=== PATIENT | male | born 1955 | race Caucasian/White ===

== ENCOUNTER 2023-12-28 08:07 | Inpatient (IN) | payer MEDICARE, SELFPAY ==
[2023-12-28] VITALS (31 sets, daily range): BP systolic 126–201; BP diastolic 73–139; PULSE 62–134; RESP 13–30; TEMP 36.4–36.8; O2SAT 95–100; BMI 20.3
--- NOTE | ~2023-12-28 | CT_ITS ---
EXAMINATION: CT brain wo con DATE: 12/28/2023 09:01 INDICATION: Altered mental status. TECHNIQUE: Computed tomography (CT) of the head was performed without intravenous contrast. The mA wa s adjusted according to patient size. Iterative reconstruction technique was employed. The dose-lengt h product was 605.33 mGy-cm. COMPARISON: None FINDINGS: There are old infarcts involving the bilateral basal ganglia and anterior limb right internet programmer al capsule. There are scattered areas of low attenuation in the cerebral white matter. There is no in tracranial hemorrhage, acute infarction, or abnormal intracranial mass lesion. The ventricles are nor mal in size. The paranasal sinuses are clear. The orbits are normal. The mastoid air cells are normal . IMPRESSION: 1. Old infarcts involving the bilateral basal ganglia and anterior limb right internal capsule. 2. Mild nonspecific cerebral white matter disease, which likely represents chronic small vessel ische juan disease. Reviewed, dictated and finalized at location A. IMPRESSION: 1. Old infarcts involving the bilateral basal ganglia and anterior limb right i nternal capsule. 2. Mild nonspecific cerebral white matter disease, which likely represents lap runner justin small vessel ischemic disease.
[2023-12-28] MEDS: HALOPERIDOL LACTATE 5 MG/ML VIAL (08:20)
[2023-12-28] MEDS: LORazepam INJ (*CRX) 2 MG/ML VIAL (08:21)
--- NOTE | 2023-12-28 08:51 | PC.NURSE ---
Cooperative with staff. No further yelling.
--- NOTE | 2023-12-28 08:54 | ED.GENADULT ---
HPI - General Adult General Chief complaint: Altered Mental Status Stated complaint: behavioral issue Time Seen by Provider: 12/28/23 08:36 History of Present Illness HPI narrative: 68-year-old male presenting to the emergency department for evaluation for altered mental status. Patient was found running in and out of traffic and screaming. Patient arrived to the emergency department and police custody and was screaming C systole at the staff. Patient appeared to be in no distress but was very agitated and very angry. In order to facilitate any exam patient needed to have some chemical restraint. Patient was treated with 5 mg of IM Haldol and 2 mg of IM Ativan. This did have the affect of decreasing the patient's agitation and we were able to have some interaction with him. Patient denies any pain or complaint. Related Data Home Medications Medication Instructions Recorded Confirmed No Home Medications 12/28/23 12/28/23 Allergies Allergy/AdvReac Type Severity Reaction Status Date / Time Penicillins Allergy Unknown Verified 11/23/09 15:03 Review of Systems Review of Systems: All systems reviewed & are unremarkable except as noted in HPI and below [facility] Family History Family History Father Family history of coronary artery disease Social History Social History Smoking status: Smoker, status unknown Tobacco type: pipe Alcohol intake: never Spiritual care concerns: No Exam Narrative: APPEARANCE: Distress HEAD: normocephalic, atraumatic. EYES: PERRLA/EOMI, conjunctivae clear. NOSE: Normal no drainage EARS:TMS clear with good light reflex. THROAT: Pharynx clear, no exudate. NECK: Supple. No adenopathy, no masses. RESPIRATORY: Airway patent, respirations nonlabored. Clear to auscultation bilaterally, no rales, rhonchi, wheezing. CARDIOVASCULAR: Regular rate and rhythm without murmurs rubs or gallops. ABDOMINAL: Soft, nontender, nondistended, normal bowel sounds MUSCULOSKELETAL: Moves all extremities. Strength/ROM intact, No edema, No calf tenderness. NEURO: Alert. Cranial nerves II through XII intact. Good gait. Good coordination SKIN: Warm, dry. Normal Color PSYCHIATRIC: Agitated Course Course Emergency Course: The patient was admitted for altered mental status and UTI Vital Signs Vital signs: Vital Signs Temperature 98.1 F 12/28/23 08:09 Pulse Rate 134 H 12/28/23 08:09 Respiratory Rate 30 H 12/28/23 08:09 Pulse Oximetry 100 12/28/23 08:09 Oxygen Delivery Room Air 12/28/23 08:09 Temperature 97.7 F 12/28/23 16:00 Pulse Rate 66 12/28/23 18:00 Respiratory Rate 16 12/28/23 16:00 Blood Pressure 137/73 12/28/23 16:00 Pulse Oximetry 100 12/28/23 16:00 Oxygen Delivery Nasal Cannula 12/28/23 16:00 Oxygen Flow Rate 2 12/28/23 16:00 Medical Decision Making MDM Narrative Medical decision making narrative: 68-year-old male presents emergency department for evaluation for increased agitation altered mental status. Patient was afebrile with no leukocytosis and a hemoglobin of 13.3. No significant abnormalities on the patient's CMP UA was significant for urinary tract infection. Patient's drug screen was negative and patient was negative for influenza RSV and for COVID. Head CT showed no acute intracranial abnormality. Patient's altered mental status may be secondary to a urinary tract infection. Patient was started on antibiotics and admitted to the hospitalist for further evaluation. After patient initially was agitated and treated with Haldol and Ativan he was resting comfortably for the majority of his time in the emergency department. Patient had no further outbursts but did interact communication. Differential Diagnosis Differential Diagnosis: Subarachnoid hemorrhage, subdural hematoma, meningitis, influenza, RSV, COVID, UTI, intoxi
--- NOTE | 2023-12-28 08:55 | ECG_ITS ---
Test Date: 2023-12-28 09:03:55 Measurements Intervals [place] Rate: 84 P: 70 MD: 147 QRS: 67 QRSD: 102 T: 46 QT: 410 QTc: 485 Interpretive Statements SINUS RHYTHM POSSIBLE RIGHT ATRIAL ENLARGEMENT [0.25mV P WAVE] LEFT ATRIAL ENLARGEMENT [-0.15mV P WAVE IN V1/V2] POSSIBLE LEFT VENTRICULAR HYPERTROPHY [VOLTAGE CRITERIA PLUS LAE OR QRS WIDENING] No previous ECG available for comparison Electronically Signed On 12-28-2023 11:00:52 CDT by Scar Young M.D.
[2023-12-28 09:19] LABS: Basophils Percent Auto 0.3 % (0.2-1.2); Eosinophils Absolute Auto 0.1 K/mm3 (0-0.3); Hematocrit 40.3 % (42.0-52.0); Hemoglobin 13.3 g/dL (14.0-18.0); Immature Granulocyte Absolute 0.02 K/mm3 (0.00-0.031); Immature Granulocyte Percent A 0.3 % (0-0.5); Lymphocytes Absolute Auto 0.73 K/mm3 (0.9-3.2); Lymphocytes Percent Auto 10.4 % (18.3-44.2); Mean Corpuscular Hemoglobin 30.6 pg (26-34); Mean Corpuscular Volume 92.9 fl (80-100); Mean Platelet Volume 10.1 fl (7.4-10.4); Monocytes Absolute Auto 0.4 K/mm3 (0.1-0.6); Monocytes Percent Auto 6.2 % (2.6-8.5); Neutrophils Absolute Auto 5.7 K/mm3 (1.3-6.7); Neutrophils Percent Auto 81.8 % (45.5-73.1); Platelet Count Result 236 k/mm3 (150-375); Red Blood Count 4.34 M/mm3 (4.6-6.20); Red Cell Distribution Width 14.4 % (11.5-14.5)
[2023-12-28 09:30] LABS: Partial Thromboplastin Time 22.1 Seconds (22.3-36.8); Prothrombin Time 13.9 Seconds (11.1-14.7)
[2023-12-28 09:44] LABS: Acetaminophen < 10 ug/mL (10-30); Alanine Aminotransferase 37 U/L (6-50); Albumin Level 3.9 g/dL (3.5-5.1); Alkaline Phosphatase 62 U/L (38-126); Anion Gap 8 mmol/L (4-12); Aspartate Amino Transferase 66 U/L (17-59); Bilirubin,Total 0.6 mg/dL (0.2-1.3); Blood Urea Nitrogen 21 mg/dL (9-20); Carbon Dioxide 28 mmol/L (22-30); Chloride 100 mmol/L (98-107); Estimated CRCL calculation 49 ml/min; Estimated Glomerular Filt Rate 55; Ethanol < 10 mg/dL (<10); Glucose 123 mg/dL (65-110); Potassium 3.4 mmol/L (3.4-5.0); Salicylate < 1.0 mg/dL (2-20); Sodium 136 mmol/L (137-145)
[2023-12-28 09:55] LABS: Influenza A QL RT-PCR Negative (Negative); Influenza B QL RT-PCR Negative (Negative); RSV RNA, RT-PCR Negative (Negative); SARS-CoV-2 RNA PCR Negative (Negative)
[2023-12-28 11:23] LABS: Add Urine Microscopic? YES; Appearance Urine Cloudy (Clear); Bacteria Urine 1+ /hpf; Bilirubin Urine Negative (Negative); Blood Urine 1+ (Negative); Color Urine Yellow (Yellow); Glucose Urine UA Negative (Negative); Ketones Urine Trace mg/dL (Negative); Leukocyte Esterase Ur 3+ LEU/UL (Negative); Need Manual Microscopic Reviewed; Nitrate Urine Positive (Negative); Non Pathogenic Casts 0-2; Protein Urine 1+ mg/dL (Negative); RBC Urine 0-2 /hpf (0-2); Specific Grav Ur 1.017 (1.001-1.035); Squamous Epithelial Cell Urine None Seen /hpf (Few); Urobilinogen Urine 0.2 mg/dL (<2.0); WBC Urine >100 /hpf (0-3)
[2023-12-28 11:25] LABS: Amphetamine Screen Urine Negative (Negative); Barbiturate Screen Urine Negative (Negative); Benzodiazepines Screen Urine Negative (Negative); Cannabinoid Screen Urine Negative (Negative); Cocaine Screen Urine Negative (Negative); Methadone Screen Urine Negative (Negative); Opiate Screen Urine Negative (Negative); Phencyclidine Screen Urine Negative (Negative)
[2023-12-28] MEDS: levoFLOXacin 750 MG/D5W 150 ML 750 MG/150 ML BAG 100 MG IVPB (11:53)
--- NOTE | 2023-12-28 11:58 | PC.NURSE ---
Remains cooperative with staff.
--- NOTE | 2023-12-28 12:39 | PC.NURSE ---
This RN spoke with CANARY RAISER regarding the patient's transfer to IMU room 205-02
--- NOTE | 2023-12-28 12:57 | ADMGEN ---
This patient, Isreal Garcia, was admitted to IMU Room 205-02 @ 1257. Patient/family oriented to hospital policies and general routines including ID bracelet, bed and alarms, visiting hours, pain management, procedures, bathroom and other care routines, personal items, smoking policy, room service/diet, and visiting hours. Information on how to activate the Rapid Response Team has been discussed. Patient/Family are encouraged to report perceived risks to care and to ask questions if they do not understand what they are told or what they should do.
--- NOTE | 2023-12-28 13:02 | PM.IMHP ---
H&P: HPI History of Present Illness Date/Time: 12/28/23 13:02 Chief Complaint: altered mental status Narrative: This is a 68 year old male with who presented to the hospital for evaluation of altered mental status. History of presenting illness was obtained from the chart as patient has been noncontributory due to his AMS. Past medical and surgical history is unknown at this time. According to the EMR and ER report, patient was found by police to be roaming in the middle of the road with altered mental status. Police picked him up and brought him to the hospital. Upon arrival to the ED patient was screaming at staff and required chemical restraint with Haldol and Ativan to calm him down. After dose of Haldol and Ativan, patient was able to calm down and has been resting. Work up in the ER included a head CT which shown old infarcts involving the bilateral basal ganglia and anterior limb right internal capsule, mild nonspecific cerebral white matter disease, which likely represents chronic small vessel ischemic disease. Initial labs include WBC 7.0, Hgb 13.3, Na+ 136, eGFR 55, AST 66. UA was obtained and shown a cloudy appearance, 1+ urine protein, trace urine ketone, 1+ urine blood, positive nitrate, 3+ leukocyte, greater than 100 urine WBC, 1+ urine bacteria. Urine drug screen and alcohol screen was negative. Respiratory panel was negative for influenza A and B, RSV, COVID. Patient was given a dose of Levaquin in the ED. Review of Systems Review of Systems: ROS unobtainable: Yes unobtainable due to mental status PMFSH Family History Family History Father Family history of coronary artery disease Social History Social History Smoking status: Smoker, status unknown Tobacco type: pipe Alcohol intake: never Spiritual care concerns: No Meds Home Medications and Allergies Home Medications Medication Instructions Recorded Confirmed Type No Home Medications 12/28/23 12/28/23 History Allergies Allergy/AdvReac Type Severity Reaction Status Date / Time Penicillins Allergy Unknown Verified 11/23/09 15:03 Vital Signs Vital Signs - 24 hr 12/28/23 08:09 12/28/23 08:25 12/28/23 08:31 Temperature 98.1 F Pulse Rate 134 H 102 H Respiratory Rate 30 H 20 Blood Pressure 201/139 H 170/104 H Pulse Oximetry 100 95 Oxygen Delivery Room Air Oxygen Flow Rate 12/28/23 08:31 12/28/23 08:33 12/28/23 08:31 Temperature 98.2 F Pulse Rate 103 H 101 H 90 Respiratory Rate 18 16 Blood Pressure 170/104 H 153/92 H Pulse Oximetry 96 98 Oxygen Delivery Oxygen Flow Rate 12/28/23 08:46 12/28/23 09:03 12/28/23 09:07 Temperature 98.3 F Pulse Rate 89 87 85 Respiratory Rate 20 16 15 Blood Pressure 148/90 H 157/104 H Pulse Oximetry 98 98 98 Oxygen Delivery Oxygen Flow Rate 12/28/23 09:09 12/28/23 09:15 12/28/23 09:20 Temperature Pulse Rate 86 81 81 Respiratory Rate 14 15 14 Blood Pressure 157/104 H 142/86 H Pulse Oximetry 99 98 98 Oxygen Delivery Oxygen Flow Rate 12/28/23 09:30 12/28/23 09:31 12/28/23 10:02 Temperature Pulse Rate 78 78 74 Respiratory Rate 15 15 13 Blood Pressure 126/85 Pulse Oximetry 97 98 98 Oxygen Delivery Oxygen Flow Rate 12/28/23 10:15 12/28/23 10:20 12/28/23 10:49 Temperature Pulse Rate 75 73 71 Respiratory Rate 15 14 13 Blood Pressure 135/83 Pulse Oximetry 97 99 100 Oxygen Delivery Oxygen Flow Rate 12/28/23 08:20 12/28/23 11:14 12/28/23 11:15 Temperature Pulse Rate 73 73 Respiratory Rate 14 13 Blood Pressure Pulse Oximetry 98 99 100 Oxygen Delivery Nasal Cannula Oxygen Flow Rate 2 12/28/23 11:16 12/28/23 12:40 Temperature Pulse Rate 73 70 Respiratory Rate 13 18 Blood Pressure 134/88 Pulse Oximetry 99 99 Oxygen Delivery Oxygen Flow Rate Exam Narrative:
[2023-12-28 14:11] LABS: Hemoglobin A1C 5.7 % (<5.7)
[2023-12-28] MEDS: ENOXAPARIN 40 MG/0.4 ML SYRINGE SUB-Q (14:17)
[2023-12-28] MEDS: DEXTROSE 5%/0.9% SOD CHL 1,000 ML 75 ML IV CONT (14:17)
[2023-12-28 14:37] LABS: Thyroid Stimulating Hormone 0.886 uIU/mL (0.465-4.680)
[2023-12-28 18:17] LABS: Glucose Point of Care 95 mg/dl (65-105)
[2023-12-28 23:47] LABS: Glucose Point of Care 95 mg/dl (65-105)
[2023-12-29] VITALS (19 sets, daily range): BP systolic 152–200; BP diastolic 92–127; PULSE 76–119; RESP 16–20; TEMP 36.6–37.1; O2SAT 93–100
[2023-12-29] MEDS: DEXTROSE 5%/0.9% SOD CHL 1,000 ML 75 ML IV CONT (02:43)
[2023-12-29 05:02] LABS: Basophils Percent Auto 0.6 % (0.2-1.2); Eosinophils Absolute Auto 0.2 K/mm3 (0-0.3); Eosinophils Percent Auto 3.5 % (0-4.4); Hematocrit 40.6 % (42.0-52.0); Hemoglobin 13.4 g/dL (14.0-18.0); Immature Granulocyte Absolute 0.01 K/mm3 (0.00-0.031); Immature Granulocyte Percent A 0.2 % (0-0.5); Lymphocytes Absolute Auto 1.49 K/mm3 (0.9-3.2); Lymphocytes Percent Auto 27.6 % (18.3-44.2); Mean Corpuscular Hemoglobin 30.9 pg (26-34); Mean Corpuscular Volume 93.8 fl (80-100); Mean Platelet Volume 10.2 fl (7.4-10.4); Monocytes Absolute Auto 0.5 K/mm3 (0.1-0.6); Monocytes Percent Auto 8.3 % (2.6-8.5); Neutrophils Absolute Auto 3.2 K/mm3 (1.3-6.7); Neutrophils Percent Auto 59.8 % (45.5-73.1); Platelet Count Result 235 k/mm3 (150-375); Red Blood Count 4.33 M/mm3 (4.6-6.20); Red Cell Distribution Width 14.2 % (11.5-14.5); White Blood Count 5.4 K/mm3 (4.5-10.0)
[2023-12-29 05:11] LABS: Alanine Aminotransferase 31 U/L (6-50); Albumin Level 3.4 g/dL (3.5-5.1); Alkaline Phosphatase 68 U/L (38-126); Anion Gap 3 mmol/L (4-12); Aspartate Amino Transferase 54 U/L (17-59); Bilirubin,Total 0.4 mg/dL (0.2-1.3); Blood Urea Nitrogen 17 mg/dL (9-20); Calcium 8.9 mg/dL (8.4-10.2); Carbon Dioxide 29 mmol/L (22-30); Chloride 104 mmol/L (98-107); Estimated CRCL calculation 52 ml/min; Estimated Glomerular Filt Rate > 60; Glucose 106 mg/dL (65-110); Potassium 4.2 mmol/L (3.4-5.0); Sodium 136 mmol/L (137-145)
[2023-12-29] MEDS: ENOXAPARIN 40 MG/0.4 ML SYRINGE SUB-Q (08:46)
--- NOTE | 2023-12-29 09:49 | PM.IMPN ---
Progress Note: A&P Assessment and Plan (1) Altered mental status: Code(s): R41.82 - Altered mental status, unspecified Status: Acute Assessment and Plan: 12/28/23: likely secondary to UTI patient initially requiring chemical restraint of Haldol and Ativan while in the ED head CT revealed old infarcts involving the bilateral basal ganglia and anterior limb right internal capsule, mild nonspecific cerebral white matter disease representing chronic small-vessel ischemic disease. UA positive urine culture and blood culture obtained and pending urine drug screen and alcohol screen negative respiratory panel negative for influenza a and B, RSV, COVID Will provide IVF D5NS at 75ml/hr for hydration 12/28- ok to stop fluids for now as eating and drinking well. (2) Acute UTI: Code(s): N39.0 - Urinary tract infection, site not specified Status: Acute Assessment and Plan: 12/28/23: UA showing cloudy appearance, 1+ urine protein, trace ketones, 1+ urine blood, positive nitrate, 3+ leukocyte, greater than 100 urine WBC, 1+ urine bacteria blood and urine cultures were obtained and are pending patient was given a dose of Levaquin in the ED will switch to Rocephin 1 g daily Time Spent With Patient Time with patient: Greater than 35 minutes Subjective Date/time seen: 12/29/23 09:49 Interval history: altered mental status Narrative retrieved from H/P: This is a 68 year old male with who presented to the hospital for evaluation of altered mental status. History of presenting illness was obtained from the chart as patient has been noncontributory due to his AMS. Past medical and surgical history is unknown at this time. According to the EMR and ER report, patient was found by police to be roaming in the middle of the road with altered mental status. Police picked him up and brought him to the hospital. Upon arrival to the ED patient was screaming at staff and required chemical restraint with Haldol and Ativan to calm him down. After dose of Haldol and Ativan, patient was able to calm down and has been resting. Work up in the ER included a head CT which shown old infarcts involving the bilateral basal ganglia and anterior limb right internal capsule, mild nonspecific cerebral white matter disease, which likely represents chronic small vessel ischemic disease. Initial labs include WBC 7.0, Hgb 13.3, Na+ 136, eGFR 55, AST 66. UA was obtained and shown a cloudy appearance, 1+ urine protein, trace urine ketone, 1+ urine blood, positive nitrate, 3+ leukocyte, greater than 100 urine WBC, 1+ urine bacteria. Urine drug screen and alcohol screen was negative. Respiratory panel was negative for influenza A and B, RSV, COVID. Patient was given a dose of Levaquin in the ED. 12/28 pt is seen and examined. He is jittery and somewhat anxious but seems alert. Denies pain, eating and drinking fine. Exam Narrative: General: alert, somewhat anxious but cooperative. Head: atraumatic, no encephalopathy Eyes: EOMI, PERRLA, sclera clear ENT: moist mucous membranes, nasal passages clear Neck: supple, no JVD, no adenopathy, trachea midline Cardiac: Normal S1 and S2. RRR, No murmur, gallops or friction rubs, peripheral pulses intact. Respiratory: Lungs clear to auscultation, no adventitious lung sounds, currently on 1L NC Gastrointestinal: soft, non-distended, non-tender, normoactive bowel sounds. : voiding without difficulty comfort colored urine Extremities: moves all extremities well, no edema Skin: clean, dry, intact. No wounds or lesions. Neuro: Obtunded,will awake to painful stimuli and then drifts back off to sleep, cranial nerves intact, no neuro deficits. Psych: normal mood, normal affect, interactive Objective Data Vital Signs Vital Signs: Vital Signs - 24 hr 12/28/23 10:02 12/28/23 10:15 12/28/23 10:20 Temperature Pulse Rate 74 75 73 Respiratory Rate 13 15 14 Blood Pressure 135/83 Pulse Ox
[2023-12-29 11:58] LABS: Glucose Point of Care 126 mg/dl (65-105)
--- NOTE | 2023-12-29 13:46 | PC.NURSE ---
Notified Jennie Ibarra that of high blood pressure. Current BP 175/116. SATELLITE TECHNICIAN to place orders
--- NOTE | 2023-12-29 14:33 | PC.NURSE ---
PT refusing medication, this RN is unable to convince the patient to take the medication. This RN tried educating the patient but patient continues to refuse, and is becoming agitated as evidenced by increased restlessness while sitting in the chair. Notified Jennie Ibarra who states she will order something IV to see if the patient is more agreeable to administration.
[2023-12-29] MEDS: hydrALAZINE HCL 20 MG/ML VIAL 10 MG IV PUSH (15:10)
--- NOTE | 2023-12-29 22:24 | PC.NURSE ---
Spoke with Ramona Ramos regarding patient refusing hydralazine. NNO.
--- NOTE | 2023-12-29 23:16 | PC.NURSE ---
Ramona Ramos saw patient regarding refusing hydralazine. Orders received to document refusal and obtain medical records from [facility].
--- NOTE | 2023-12-29 23:31 | PM.EVENT ---
Event Note Event Note Event Note: Was called by bedside nurse who states that patient's blood pressure remains elevated and patient refusing medications at this time. I went and assessed the patient and he is alert and oriented x3. he knows that he is at [facility], he knows that it is December and that it is 2023. He also stated that Rajiv Edwards was the student life vice president when asked. I discussed the importance of taking his medications while inpatient as we are treating him for urinary tract infection and that his blood pressure is elevated. His blood pressure is ranging 179/106 to 200/113. He states that he does not believe that he needs any medication and continues to refuse. he also mentions that he sees a psych DrLeón and has been a patient at [facility] in the past. He denies taking any medications at home as he was told that he does not need any medications. He thinks that the blood pressure cuff is wrong and it that we are illegally prescribing medications. He denies any use of alcohol or illicit drugs However admitted to marijuana use in the past. Spoke with nursing to obtain medical records from [facility] as well as [facility] as he has sought care there as well. He states he does not see a primary care physician and could not recall the name of his psychiatrist. We will continue to monitor at this time and will get case management involved getting medical records from other facilities.
[2023-12-30] VITALS (13 sets, daily range): BP systolic 150–192; BP diastolic 93–110; PULSE 76–117; RESP 16–20; TEMP 36.6–37.2; O2SAT 96–100
[2023-12-30 05:35] LABS: Basophils Percent Auto 0.5 % (0.2-1.2); Eosinophils Absolute Auto 0.2 K/mm3 (0-0.3); Eosinophils Percent Auto 3.1 % (0-4.4); Hemoglobin 14.3 g/dL (14.0-18.0); Immature Granulocyte Absolute 0.02 K/mm3 (0.00-0.031); Immature Granulocyte Percent A 0.3 % (0-0.5); Lymphocytes Absolute Auto 2.08 K/mm3 (0.9-3.2); Lymphocytes Percent Auto 32.7 % (18.3-44.2); Mean Corpuscular HGB Conc 33.3 g/dl (32-36); Mean Corpuscular Hemoglobin 30.8 pg (26-34); Mean Corpuscular Volume 92.5 fl (80-100); Mean Platelet Volume 10.5 fl (7.4-10.4); Monocytes Absolute Auto 0.5 K/mm3 (0.1-0.6); Monocytes Percent Auto 8.2 % (2.6-8.5); Neutrophils Absolute Auto 3.5 K/mm3 (1.3-6.7); Neutrophils Percent Auto 55.2 % (45.5-73.1); Platelet Count Result 246 k/mm3 (150-375); Red Blood Count 4.65 M/mm3 (4.6-6.20); Red Cell Distribution Width 14.4 % (11.5-14.5); White Blood Count 6.4 K/mm3 (4.5-10.0)
[2023-12-30 05:53] LABS: Alanine Aminotransferase 29 U/L (6-50); Albumin Level 3.8 g/dL (3.5-5.1); Alkaline Phosphatase 76 U/L (38-126); Anion Gap 6 mmol/L (4-12); Aspartate Amino Transferase 44 U/L (17-59); Bilirubin,Total 0.6 mg/dL (0.2-1.3); Blood Urea Nitrogen 11 mg/dL (9-20); Carbon Dioxide 28 mmol/L (22-30); Chloride 101 mmol/L (98-107); Estimated CRCL calculation 62 ml/min; Estimated Glomerular Filt Rate > 60; Glucose 88 mg/dL (65-110); Potassium 3.6 mmol/L (3.4-5.0); Sodium 135 mmol/L (137-145)
[2023-12-30] MEDS: ENOXAPARIN 40 MG/0.4 ML SYRINGE SUB-Q (08:43)
[2023-12-30] MEDS: hydrALAZINE HCL 20 MG/ML VIAL 10 MG IV PUSH (09:16)
--- NOTE | 2023-12-30 10:20 | PC.NURSE ---
PT alert and oriented. Knows location, month and year, and the presidents name. PT does not want to give name and remains suspicious this morning. Concerned staff are giving him anthrax through his IV. Order to obtain medical records but the patient refuses to sign consent. States it may come back on me . Notifed Dr Nunez of refusal and refusal of morning Norvasc.
[2023-12-30 11:47] LABS: Glucose Point of Care 131 mg/dl (65-105)
--- NOTE | 2023-12-30 15:57 | PM.IMPN ---
Progress Note: A&P Assessment and Plan (1) Altered mental status: Code(s): R41.82 - Altered mental status, unspecified Status: Acute Assessment and Plan: Patient was brought in by police after being found running in and out of traffic and screaming. He was treated with 5 mg of IM Haldol and 2 mg of IM Ativan in the ED. Labs were unrevealing. TSH normal. CT brain showing old infarcts involving the bilateral basal ganglia and anterior limb right internal capsule and mild nonspecific cerebral white matter disease but no acute changes. UDS was negative. COVID, RSV and influenza PCR were negative. Salicylates, acetaminophen and alcohol levels negative. UA consistent with UTI. Possibly AMS related to UTI. Symptoms better today. Consider also withdrawal vs psychiatric. Check B12, folate. Monitor (2) Acute UTI: Code(s): N39.0 - Urinary tract infection, site not specified Status: Acute Assessment and Plan: UA is consistent with UTI. UCx collected. Levaquin started. BCx NGTD UCx pending. Follow up on UCx results. (3) CVA (cerebral vascular accident): Code(s): I63.9 - Cerebral infarction, unspecified Status: Acute Assessment and Plan: CT brain as mentioned above. A1c 5.7. He refuses aspirin and statin therapy here. He does take 'B and C' which might be a powder form of aspirin. Encouraged patient to take ASA daily (4) Elevated blood pressure reading: Code(s): R03.0 - Elevated blood-pressure reading, without diagnosis of hypertension Status: Acute Assessment and Plan: Patient's blood pressure was reviewed on 12/29 Blood pressure remains elevated at times He is refusing medications. He is oriented. 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 He refuses to sign for relase of information from [employer]. DVT prophylaxis - SCDs Code status - full Subjective Date/time seen: 12/30/23 15:57 Interval history: 68yo male here for altered mental status. Assuming care. Chart reviewed. Patient is oriented but still has difficulty providing hx. He has been refusing medication and is suspicious. He deniess CP, SOB or cough. Exam Narrative: AF 98.0 163/93 110 20 98% ra Gen - NARD Chest - scattered innspiratory rhonchi. CV - RRR S1/S2 Tele showing occasional sinus tach Abd - Soft, NT/ND, Positive BS Ext - No pedal edema. 2+ DP pulses. Neuro - Alert and orientedx4. Nonfocal exam. Mild garbled speech at times Psych - Nml mood and affect. Apprehensive but allows for exam to be performed. good eye contact. tangential thought process Skin - Warm and dry Objective Data Vital Signs Vital Signs: Vital Signs - 24 hr 12/29/23 16:00 12/29/23 16:00 12/29/23 17:30 Temperature 98 F Pulse Rate 89 81 84 Respiratory Rate 16 Blood Pressure 179/106 H Pulse Oximetry 100 Oxygen Delivery Room Air 12/29/23 18:00 12/29/23 19:43 12/29/23 20:00 Temperature 97.8 F Pulse Rate 94 105 H 105 H Respiratory Rate 16 16 Blood Pressure 200/113 H Pulse Oximetry 97 97 Oxygen Delivery Room Air 12/29/23 20:00 12/29/23 22:00 12/29/23 23:40 Temperature Pulse Rate 85 106 H 106 H Respiratory Rate 16 Blood Pressure Pulse Oximetry 97 Oxygen Delivery Room Air 12/29/23 23:47 12/30/23 00:00 12/30/23 01:54 Temperature 98.1 F Pulse Rate 119 H 94 76 Respiratory Rate 16 Blood Pressure 154/127 H Pulse Oximetry 100 Oxygen Delivery 12/30/23 04:00 12/30/23 04:00 12/30/23 05:21 Temperature 98.9 F Pulse Rate 76 77 108 H Respiratory Rate 16 20 Blood Pressure 163/109 H Pulse Oximetry 100 96 Oxygen Delivery Room Air 12/30/23 05:36 12/30/23 07:35 12/30/23 08:00 Temperature 98.2 F Pulse Rate 96 108 H 109 H Respiratory Rate 16 Blood Pressure 192/98 H Pulse Oximetry 98 Oxygen Delivery 12/30/23 08:00 12/30/23 10:00 12/30/23 11:55 Temperature 98.0 F
--- NOTE | 2023-12-30 18:08 | PC.NURSE ---
Report given to Hong CHRISTINE, transferred PT via wheelchair, sitter at bedside.
--- NOTE | 2023-12-30 20:39 | PC.NURSE ---
Patient BP 180/110. Patient refuses to take any medications. Explained risks and benefits of medication and not taking medication. Notified Karen LE.
--- NOTE | 2023-12-30 20:53 | PM.EVENT ---
Event Note Event Note Event Note: Patient continues to refuse medications. Blood pressure this evening is 180/110.
[2023-12-30 23:32] LABS: Glucose Point of Care 95 mg/dl (65-105)
[2023-12-31 06:11] LABS: Basophils Percent Auto 0.6 % (0.2-1.2); Eosinophils Absolute Auto 0.2 K/mm3 (0-0.3); Eosinophils Percent Auto 3.6 % (0-4.4); Hematocrit 45.7 % (42.0-52.0); Hemoglobin 15.2 g/dL (14.0-18.0); Immature Granulocyte Absolute 0.01 K/mm3 (0.00-0.031); Immature Granulocyte Percent A 0.2 % (0-0.5); Lymphocytes Absolute Auto 1.39 K/mm3 (0.9-3.2); Lymphocytes Percent Auto 29.5 % (18.3-44.2); Mean Corpuscular HGB Conc 33.3 g/dl (32-36); Mean Corpuscular Hemoglobin 30.8 pg (26-34); Mean Corpuscular Volume 92.5 fl (80-100); Mean Platelet Volume 9.9 fl (7.4-10.4); Monocytes Absolute Auto 0.4 K/mm3 (0.1-0.6); Monocytes Percent Auto 8.1 % (2.6-8.5); Neutrophils Absolute Auto 2.7 K/mm3 (1.3-6.7); Platelet Count Result 247 k/mm3 (150-375); Red Blood Count 4.94 M/mm3 (4.6-6.20); Red Cell Distribution Width 14.6 % (11.5-14.5); White Blood Count 4.7 K/mm3 (4.5-10.0)
[2023-12-31 06:14] VITALS: BP 190/118; PULSE 115; RESP 18; TEMP 36.7; O2SAT 97
[2023-12-31 06:22] LABS: Alanine Aminotransferase 28 U/L (6-50); Albumin Level 4.1 g/dL (3.5-5.1); Alkaline Phosphatase 72 U/L (38-126); Anion Gap 6 mmol/L (4-12); Aspartate Amino Transferase 40 U/L (17-59); Bilirubin,Total 0.7 mg/dL (0.2-1.3); Blood Urea Nitrogen 17 mg/dL (9-20); Calcium 9.6 mg/dL (8.4-10.2); Carbon Dioxide 30 mmol/L (22-30); Chloride 102 mmol/L (98-107); Estimated CRCL calculation 55 ml/min; Estimated Glomerular Filt Rate > 60; Glucose 98 mg/dL (65-110); Potassium 3.7 mmol/L (3.4-5.0); Sodium 138 mmol/L (137-145)
--- NOTE | 2023-12-31 06:22 | PC.NURSE ---
Patient BP 190/118. Patient refusing PRN antihypertensives despite being educated on risks of not taking. Patient A/Ox3 at time of education and continues to decline medications. Notified Dr. Bach at this time. Says to put in physician to nurse comm not to notify provider if patient A/Ox3 and refusing hypertensives after being educated on risks of refusal.
[2023-12-31 07:00] LABS: Vitamin D 25 Hydroxy 25.4 ng/mL
[2023-12-31 07:28] LABS: Folic Acid 9.6 ng/mL (2.76->20)
[2023-12-31 08:30] LABS: Rapid Plasma Reagin Non-Reactive (NonReactive)
--- NOTE | 2023-12-31 08:39 | PC.NURSE ---
Patient refusing all morning medications. Patient educated on importance of medication of treating high blood pressure and treating current UTI. Patient still refusing medication. Plan of care continues.
--- NOTE | 2023-12-31 11:24 | PM.DS ---
DS: Admitting Diagnosis Discharge Date 12/31/2023 Admitting Diagnosis AMS DS: Discharge Diagnosis Discharge Diagnosis (1) Altered mental status: Code(s): R41.82 - Altered mental status, unspecified Status: Acute Assessment and Plan: Patient was brought in by police after being found running in and out of traffic and screaming. He was treated with 5 mg of IM Haldol and 2 mg of IM Ativan in the ED. Labs were unrevealing. TSH normal. CT brain showing old infarcts involving the bilateral basal ganglia and anterior limb right internal capsule and mild nonspecific cerebral white matter disease but no acute changes. UDS was negative. COVID, RSV and influenza PCR were negative. Salicylates, acetaminophen and alcohol levels negative. UA consistent with UTI. Possibly AMS related to UTI. Pt is pleasant to day ok to DC on oral ABX (2) Acute UTI: Code(s): N39.0 - Urinary tract infection, site not specified Status: Acute Assessment and Plan: UA is consistent with UTI. UCx collected. Levaquin started. BCx NGTD UC shows- Coag neg Staph, not saprophyti M.I.C. RX --------- --- Vancomycin 1 S Ciprofloxacin <=0.5 S Levofloxacin 0.25 S Gentamicin <=0.5 S Nitrofurantoin <=16 S Oxacillin <=0.25 S (3) CVA (cerebral vascular accident): Code(s): I63.9 - Cerebral infarction, unspecified Status: Acute Assessment and Plan: CT brain as mentioned above. A1c 5.7. He refuses aspirin and statin therapy here. He does take 'B and C' which might be a powder form of aspirin. Encouraged patient to take ASA daily (4) Elevated blood pressure reading: Code(s): R03.0 - Elevated blood-pressure reading, without diagnosis of hypertension Status: Acute Assessment and Plan: Patient's blood pressure was reviewed on 12/29 Blood pressure remains elevated at times He is refusing medications. He is oriented. Ok to dc advised to take his medications Plan Psychiatric disorder NOS - calm and coopertive. He refuses to sign for relase of information from [place]. history of schizophrenia lives in a hotel DS: Summary Hospital Course Hospital Course: 68 year old male with who presented to the hospital for evaluation of altered mental status. History of presenting illness was obtained from the chart as patient has been noncontributory due to his AMS. Past medical and surgical history is unknown at this time. According to the EMR and ER report, patient was found by police to be roaming in the middle of the road with altered mental status. Police picked him up and brought him to the hospital. Upon arrival to the ED patient was screaming at staff and required chemical restraint with Haldol and Ativan to calm him down. After dose of Haldol and Ativan, patient was able to calm down and has been resting. Work up in the ER included a head CT which shown old infarcts involving the bilateral basal ganglia and anterior limb right internal capsule, mild nonspecific cerebral white matter disease, which likely represents chronic small vessel ischemic disease. Initial labs include WBC 7.0, Hgb 13.3, Na+ 136, eGFR 55, AST 66. UA was obtained and shown a cloudy appearance, 1+ urine protein, trace urine ketone, 1+ urine blood, positive nitrate, 3+ leukocyte, greater than 100 urine WBC, 1+ urine bacteria. Urine drug screen and alcohol screen was negative. Respiratory panel was negative for influenza A and B, RSV, COVID. Patient was given a dose of Levaquin in the ED Time Spent with Patient Time attestation: Total time spent providing and/or coordinating discharge services:50 minutes on day of DC Exam Narrative: [place]
== END 2023-12-31 12:25 | disposition home or self-care (01) | DRG 690 ==
LOC: ANHED 11:37 → ANH2MED 12:16 → ANHIMU 12:27 → ANH3MEDSUR 12-30 18:11
PROVIDERS: Internal Medicine; Nurse Practitioner Acute Care; Admitting Provider General Practice; Emergency Provider Emergency Medicine; PCP Internal Medicine; Visit Provider Family Medicine
DX: N39.0 Urinary tract infection, site not specified (principal); R03.0 Elevated blood-pressure reading, without diagnosis of hypertension; F20.9 Schizophrenia, unspecified; Z20.822 Contact with and (suspected) exposure to COVID-19; Z86.73 Personal history of transient ischemic attack (TIA), and cerebral infarction without residual deficits
CPT/HCPCS: 36415; 70450; 80053; 80143; 80179; 80307; 81001; 82077; 82306; 82607; 82746; 82948; 83036; 83605; 84443; 85025; 85610; 85730; 86592; 87040; 87086; 87181; 87637; 93005; 96361; 96365; 96366; 96367; 96372; 96375; 99285; A9270; G0378; J0360; J0696; J1630; J1650; J1956; J2060; J7042

== ENCOUNTER 2024-01-14 10:34 | Emergency (ER) | payer MEDICARE, SELFPAY ==
[2024-01-14] VITALS (19 sets, daily range): BP systolic 122–179; BP diastolic 40–124; PULSE 73–102; RESP 16–18; TEMP 36.4–36.8; O2SAT 90–100
--- NOTE | ~2024-01-14 | CT_ITS ---
Non-contrast Head CT History: Trauma COMPARISON: 12/28/2023 Technique: Axial non-contrast imaging of the brain was performed. Dose reduction technique was used on this scan by utilizing automated exposure control and iterative reconstruction technique. The dose -length product (DLP) was 908.00 mGy-cm. Findings: There is no evidence of intracranial hemorrhage, mass lesion, or acute infarct. Stable lac unar infarct right basal ganglia region. The ventricles and subarachnoid spaces are normal in size. The calvarium appears normal. The visualized paranasal sinuses and mastoid air cells are clear. Impression: No acute abnormality seen. Reviewed, dictated and finalized at location . Impression: No acute abnormality seen.
--- NOTE | ~2024-01-14 | CT_ITS ---
CT cervical spine wo con Ordering provider: Tad Cantu MD History: . head injury . Comparison: None. Technique: CT of the cervical spine was performed without contrast. Sagittal and coronal reformatted images were also obtained and reviewed. Automated exposure control and iterative reconstruction lina hnique were employed. The dose-length product was 188.99 mGy-cm. FINDINGS: VERTEBRAE: No subluxation or acute fracture. The occipital condyles are intact. Degenerative changes of the spine with posterior osteophytes. DISC SPACES: Narrowing of the disc C5-C6 and C6-C7. Multilevel facet joint disease. Multilevel uncove rtebral joint osteoarthritic narrowing of the left foramina at the level of C3-C4. Narrowing of the r ight foramen at the level of C4-C5. Narrowing of the foramina at the level of C5-C6 more on the left side. Narrowing of the bilateral foramina at the level of C6-C7. Mild spinal canal stenosis at the [place] of C5-C6 and C6-C7. PARASPINOUS SOFT TISSUES: Normal. IMPRESSION: No acute osseous abnormality cervical spine. Multilevel degenerative disc Reviewed, dictated and finalized at location A.
[2024-01-14] MEDS: HALOPERIDOL LACTATE 5 MG/ML VIAL IM (10:48)
[2024-01-14] MEDS: LORazepam INJ (*CRX) 2 MG/ML VIAL IM (10:48)
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
[2024-01-14 11:31] LABS: Basophils Percent Auto 0.3 % (0.2-1.2); Eosinophils Absolute Auto 0.1 K/mm3 (0-0.3); Eosinophils Percent Auto 1.8 % (0-4.4); Hemoglobin 12.1 g/dL (14.0-18.0); Immature Granulocyte Absolute 0.01 K/mm3 (0.00-0.031); Immature Granulocyte Percent A 0.2 % (0-0.5); Lymphocytes Absolute Auto 0.61 K/mm3 (0.9-3.2); Lymphocytes Percent Auto 10.2 % (18.3-44.2); Mean Corpuscular HGB Conc 32.7 g/dl (32-36); Mean Corpuscular Hemoglobin 30.6 pg (26-34); Mean Corpuscular Volume 93.7 fl (80-100); Mean Platelet Volume 10.3 fl (7.4-10.4); Monocytes Absolute Auto 0.3 K/mm3 (0.1-0.6); Monocytes Percent Auto 5.5 % (2.6-8.5); Neutrophils Absolute Auto 4.9 K/mm3 (1.3-6.7); Platelet Count Result 246 k/mm3 (150-375); Red Blood Count 3.95 M/mm3 (4.6-6.20); Red Cell Distribution Width 14.5 % (11.5-14.5)
[2024-01-14 11:41] LABS: INR 1.1; Prothrombin Time 14.3 Seconds (11.1-14.7)
[2024-01-14 11:42] LABS: Partial Thromboplastin Time 22.4 Seconds (22.3-36.8)
[2024-01-14 11:45] LABS: Acetaminophen < 10 ug/mL (10-30); Ethanol < 10 mg/dL (<10); Salicylate < 1.0 mg/dL (2-20)
[2024-01-14 11:47] LABS: Add Urine Microscopic? YES; Appearance Urine Clear (Clear); Bacteria Urine None Seen /hpf; Bilirubin Urine Negative (Negative); Blood Urine Negative (Negative); Color Urine Yellow (Yellow); Glucose Urine UA Trace mg/dL (Negative); Hyaline Casts Urine Present /lpf; Ketones Urine Negative (Negative); Leukocyte Esterase Ur Negative LEU/UL (Negative); Need Manual Microscopic Reviewed; Nitrate Urine Negative (Negative); Protein Urine Trace mg/dL (Negative); RBC Urine 0-2 /hpf (0-2); Specific Grav Ur 1.017 (1.001-1.035); Squamous Epithelial Cell Urine None Seen /hpf (Few); WBC Urine 0-5 /hpf (0-3)
[2024-01-14 12:15] LABS: Influenza A QL RT-PCR Negative (Negative); Influenza B QL RT-PCR Negative (Negative); RSV RNA, RT-PCR Negative (Negative); SARS-CoV-2 RNA PCR Negative (Negative)
[2024-01-14 12:17] LABS: Alanine Aminotransferase 108 U/L (6-50); Albumin Level 3.9 g/dL (3.5-5.1); Alkaline Phosphatase 68 U/L (38-126); Anion Gap 9 mmol/L (4-12); Aspartate Amino Transferase 148 U/L (17-59); Bilirubin,Total 0.5 mg/dL (0.2-1.3); Blood Urea Nitrogen 21 mg/dL (9-20); Carbon Dioxide 28 mmol/L (22-30); Chloride 104 mmol/L (98-107); Estimated Glomerular Filt Rate 55; Glucose 148 mg/dL (65-110); Potassium 2.8 mmol/L (3.4-5.0); Sodium 141 mmol/L (137-145)
[2024-01-14] MEDS: KCL 20 MEQ/SW 100 ML 100 ML 50 MEQ IVPB (13:22)
[2024-01-14] MEDS: SODIUM CHLORIDE 0.9% IV 1,000 ML 999 ML IV CONT (13:23)
[2024-01-14] MEDS: POTASSIUM CHLORIDE 20 MEQ PACKET (FOR LIQUID) 40 MEQ PO (13:24)
[2024-01-14 13:29] LABS: Amphetamine Screen Urine Negative (Negative); Barbiturate Screen Urine Negative (Negative); Benzodiazepines Screen Urine Negative (Negative); Cannabinoid Screen Urine Negative (Negative); Cocaine Screen Urine Negative (Negative); Methadone Screen Urine Negative (Negative); Opiate Screen Urine Negative (Negative); Phencyclidine Screen Urine Negative (Negative)
[2024-01-15] VITALS (12 sets, daily range): BP systolic 141–166; BP diastolic 71–135; PULSE 72–79; RESP 20; O2SAT 96–98
--- NOTE | 2024-01-15 04:49 | PC.NURSE ---
This RN asked the pt it he would talk to staff and answer some questions, Pt loudly shouted no and closed his eyes and rolled over
--- NOTE | 2024-01-15 05:15 | PC.NURSE ---
Patient states he is awake now, but does not want to talk to anyone.
== END 2024-01-15 06:40 | disposition home or self-care (01) ==
PROVIDERS: Emergency Provider Emergency Medicine; PCP Internal Medicine
DX: F20.9 Schizophrenia, unspecified (principal); S01.81XA Laceration without foreign body of other part of head, initial encounter; Z11.52 Encounter for screening for COVID-19; Z86.73 Personal history of transient ischemic attack (TIA), and cerebral infarction without residual deficits; Z79.899 Other long term (current) drug therapy; M50.31 Other cervical disc degeneration, high cervical region; Y35.813A Legal intervention involving manhandling, suspect injured, initial encounter
CPT/HCPCS: 36415; 70450; 72125; 80053; 80143; 80179; 80307; 81001; 82077; 85025; 85610; 85730; 87637; 96365; 96366; 96372; 99284; A9270; J1630; J2060; J3480; J7030

== ENCOUNTER 2024-01-18 14:33 | Emergency (ER) | payer MEDICARE, SELFPAY ==
[2024-01-18 15:59] VITALS: BP 220/118; PULSE 92; RESP 18; TEMP 36.8; O2SAT 98
--- NOTE | 2024-01-18 16:29 | ED.GENADULT ---
HPI - General Adult General Chief complaint: Unspecified Stated complaint: fit for confinement Time Seen by Provider: 01/18/24 14:43 History of Present Illness HPI narrative: 68-year-old male presenting to the emergency department for evaluation for agitation. He was causing a disturbance and [employer] and placed were called and patient became combative with the police. Upon arrival emergency department patient denies any pain or complaints. Related Data Allergies Allergy/AdvReac Type Severity Reaction Status Date / Time Penicillins Allergy Unknown Unknown Verified 01/18/24 14:46 Review of Systems Review of Systems: All systems reviewed & are unremarkable except as noted in HPI and below PMFSH Past Medical History Medical History (Updated 01/18/24 @ 17:12 by Tad Cantu MD) CVA (cerebral vascular accident) Family History Family History Father Family history of coronary artery disease Social History Social History Smoking status: Smoker, status unknown Tobacco type: pipe Alcohol intake: never Spiritual care concerns: No Exam Narrative: APPEARANCE: Well appearing, no pain, no distress, well-nourished. HEAD: normocephalic, atraumatic. EYES: PERRLA/EOMI, conjunctivae clear. NOSE: Normal no drainage EARS:TMS clear with good light reflex. THROAT: Pharynx clear, no exudate. NECK: Supple. No adenopathy, no masses. RESPIRATORY: Airway patent, respirations nonlabored. Clear to auscultation bilaterally, no rales, rhonchi, wheezing. CARDIOVASCULAR: Regular rate and rhythm without murmurs rubs or gallops. ABDOMINAL: Soft, nontender, nondistended, normal bowel sounds MUSCULOSKELETAL: Moves all extremities. Strength/ROM intact, No edema, No calf tenderness. NEURO: Alert. Cranial nerves II through XII intact. Good gait. Good coordination grossly intact SKIN: Warm, dry. Normal Color PSYCHIATRIC: Agitated but nonviolent Course Vital Signs Vital signs: Vital Signs Temperature 98.2 F 01/18/24 15:59 Pulse Rate 92 01/18/24 15:59 Respiratory Rate 18 01/18/24 15:59 Blood Pressure 220/118 H 01/18/24 15:59 Pulse Oximetry 98 01/18/24 15:59 Temperature 98.2 F 01/18/24 15:59 Pulse Rate 92 01/18/24 15:59 Respiratory Rate 18 01/18/24 15:59 Blood Pressure 220/118 H 01/18/24 15:59 Pulse Oximetry 98 01/18/24 15:59 Medical Decision Making MDM Narrative Medical decision making narrative: 68-year-old male presenting to the emergency department by police escort for cleared for confinement paperwork. Patient's blood pressures were elevated 220/118. Patient declined any oral medication for treatment of his blood pressure. Patient does take amlodipine. Patient denies any pain or complaints. Patient is wishing to be discharged to home. Patient did sign the AMA paperwork and police are removing the patient from the property. Patient appears to be in no distress at time of discharge. Differential Diagnosis Differential Diagnosis: Psychosis, agitation, hypertension Vital Signs Vital Signs: Vital Signs Temperature 98.2 F 01/18/24 15:59 Pulse Rate 92 01/18/24 15:59 Respiratory Rate 18 01/18/24 15:59 Blood Pressure 220/118 H 01/18/24 15:59 Pulse Oximetry 98 01/18/24 15:59 Temperature 98.2 F 01/18/24 15:59 Pulse Rate 92 01/18/24 15:59 Respiratory Rate 18 01/18/24 15:59 Blood Pressure 220/118 H 01/18/24 15:59 Pulse Oximetry 98 01/18/24 15:59 Discharge Plan Discharge Clinical Impression: Agitation, Hypertension Patient Disposition: Left Against Medical Advice Condition: Stable Additional Instructions: Have close follow-up with your primary care physician for treatment for your blood pressure. If you have any worsening symptoms then please call or return to the emergency department Prescriptions: No Action amlodipine 10 mg Tablet 10 mg PO DAILY Qty: 90 0RF ciprofloxacin HCl [Cipro] 500 mg tablet 500 mg PO Q12H Qty: 10 0RF Follow-up/Referrals: Ar Pacheco MD [Primary Care Provider] -
--- NOTE | 2024-01-18 16:34 | PC.NURSE ---
Patient refuses antihypertension medications. MD Cantu verbally notified by this RN. PAtient states at attempt of administraion, Fuck you I'm not taking shit. Patient then proceeded to flip off this RN.
--- NOTE | 2024-01-18 17:17 | PC.NURSE ---
pt left in PD custody. pt refused all offers of treatment for HTN, (Clonidine and Amlodipine) and refused all offers of food and water. pt refused to sign AMA forms for offered medications ans care, stating, I don't have to sign that . FIT form and copy of AMA forms given to [address] police officer on departure from ED
--- NOTE | 2024-01-18 17:22 | PC.NURSE ---
both meds were wasted after being placed in cup for pt. pt refused to take them
== END 2024-01-18 17:21 | disposition left against medical advice (07) ==
PROVIDERS: Emergency Provider Emergency Medicine; PCP Internal Medicine
DX: R45.1 Restlessness and agitation (principal); I10 Essential (primary) hypertension; Z86.73 Personal history of transient ischemic attack (TIA), and cerebral infarction without residual deficits; Z79.899 Other long term (current) drug therapy
CPT/HCPCS: 99281